=== PATIENT | female | born 1970 | race Caucasian/White ===

== ENCOUNTER 2019-10-05 17:16 | Emergency (ER) | payer BC, SELFPAY ==
[2019-10-05 17:16] VITALS: BP 179/95; PULSE 94; RESP 18; TEMP 36.8; O2SAT 98; BMI 54.6
--- NOTE | 2019-10-05 17:30 | CT_ITS ---
STUDY: CT ABDOMEN AND PELVIS WITHOUT CONTRAST REASON FOR EXAM: Female, 49 years old. RIGHT FLANK PAIN RADIATING INTO RIGHT GROIN, NAUSEA, FREQUENT URINATION -- HX:HYSTERECTOMY RADIATION DOSAGE (If Supplied By Facility): CTDIvol = ( 24.17 ) mGy, DLP = ( 1268.10 ) mGycm TECHNIQUE: Transaxial images were obtained from the dome of the diaphragm to the symphysis pubis without oral contrast, and without intravenous contrast. Sagittal and coronal images were reconstructed. Individualized dose optimization techniques were used for this CT. COMPARISON: None. FINDINGS: The visualized lung bases are unremarkable. Normal liver. No intrahepatic biliary duct dilatation or liver mass. Normal gallbladder and extrahepatic biliary system. Normal spleen. Normal pancreas. There is a small 2.93 cm, circumscribed, smooth, low attenuation right adrenal mass, consistent with an adrenal adenoma. Normal left adrenal gland. Normal right kidney. Normal left kidney. No hydronephrosis or renal masses. No large stones. Normal visualized stomach. Normal small intestine. Normal colon. No bowel dilatation or obstruction. No free air or free fluid. The appendix is visualized and appears normal. Normal abdominal aorta. Normal inferior vena cava. Normal retroperitoneum. Normal urinary bladder. There is absence of the uterus consistent with a prior hysterectomy. A small left ovarian cyst is present. Normal abdominal wall. Normal osseous structures. CT/Abdomen/Pelvis without Cont IMPRESSION: No hydronephrosis or renal masses. No large stones. Electronically Signed: Topher Bellamy MD at 18:50 EDT , Service support ,
--- NOTE | 2019-10-05 17:32 | ED.DCSUM_ITS ---
- ER Visit Summary Date of Service: 10/05/19 Chief Complaint: Right flank pain History of Present Illness: The patient is a 49 F past medical history of a hysterectomy. Patient states yesterday she had sudden onset of right flank pain radiating to her right groin region. Denies any fall injury or trauma. Mild nausea. No vomiting or diarrhea. No dysuria. No fever or chills. No hematuria. She is never had a kidney stone. She denies any injury to her back. Physical Examination: Middle-aged female vital signs are stable afebrile. Pacing. H EENT exam unremarkable. Neck nontender to. Lungs clear to auscultation bilaterally. Heart regular rhythm no murmur. Abdomen soft nontender normal bowel sounds no peritoneal signs. Both the right upper and lower quadrants are unremarkable nontender. Patient moving all 4 extremities. Neurovascular intact. Back spine and no CVA tenderness. No right SI tenderness. Neurologically she is awake alert with no focal motor deficits. Test Results: CBC white count 11.9. Hemoglobin 10.6 which is her baseline anemia. No bands. Chemistries unremarkable. Normal creatinine and gap. UA normal. No blood. No signs of infection. CT abdomen pelvis without contrast shows no acute abnormality. Read by the radiologist reviewed by me. There is no kidney stones or ureteral stones. There is no other acute abnormality to account for her discomfort. Emergency Department Course and Treatment: Patient with right flank pain differential would include kidney stone versus musculoskeletal etiology. She was offered pain meds deferred at this time. She is driving. She did take ibuprofen prior to arrival. Repeat exam at 1900 patient is doing well. This may be secondary to musculoskeletal hip or back pain. She has discomfort with range of motion to her right hip. There is no swelling or redness. No signs of a septic joint. She has had no trauma and no reason to have a fracture. Looking at the CAT scan there is no obvious abnormality to her right hip. Treatment Plan: Tylenol and Motrin for pain. Ice to her hip. Follow-up with her primary care physician if not improving. Disposition: Discharge Impression: Acute right flank pain of uncertain etiology Musculoskeletal pain This note was generated with [employer] dictation software. It may contain incorrect words, spelling, and punctuation that were not noted in review of the chart prior to signing ED Disposition - Plan for ED Patient: Referrals: Amada Mata [Primary Care Provider] -
[2019-10-05 18:19] LABS: Bacteria 0 SEEN /hpf (None Seen); Mucous, Urine 0 SEEN /hpf (<or=2+); Red Blood Cells-Urine 0 SEEN /hpf (0-5); White Blood Cells 0 SEEN /hpf (0-5)
[2019-10-05 18:21] LABS: Absolute Lymphocyte Count 2.55 X10^3/uL (0.83-4.51); Absolute Neutrophil Count 8.1 X10^3/uL (2.0-7.7); Basophil# 0.03 X10^3/uL; Basophil% 0.3 % (0-1); Eosinophil# 0.08 X10^3/uL; Eosinophils% 0.7 % (0-5); Hematocrit 35.3 % (37-47); Hemoglobin 10.6 g/dL (12.0-15.0); Lymphocyte # 2.55 X10^3/ul (4.0); Lymphocyte % 21.4 % (19-41); Mean Corpuscular Hgb 22.6 pg (27.0-32.0); Mean Corpuscular Volume 75.4 fL (81-99); Mean Platelet Vol. 9.6 fl (6.2-12.0); Monocyte# 1.12 X10^3/uL; Monocyte% 9.4 % (0-10); NRBC Flagged by Analyzer 0 % (0-5); Neutrophil # 8.08 X10^3/uL (2.7-7.7); Neutrophil % 67.9 % (47-70); Platelet Count 350 K/mm3 (150-450); RBC Distribution Width CV 17.6 % (11.6-14.6); RBC Distribution Width SD 47.4 fl (35.1-43.9); Red Blood Count 4.68 M/mm3 (4.2-5.4); White Blood Count 11.9 K/mm3 (4.4-11.0)
[2019-10-05 18:23] LABS: Color, Urine Yellow (Yellow); Glucose, Dipstick Normal (Normal); Ketone-Dipstick Negative (Negative); Leukocyte Esterase-Dipstick Negative /ul (Negative); Nitrite-Dipstick Negative (Negative); Occult Blood-Urine Negative /ul (Negative); Protein-Dipstick Negative (Negative); Specific Gravity, Urine 1.005 (1.002-1.030); Urine Bilirubin Dipstick Negative (Negative); Urine Clarity Sl. Cloudy (Clear); Urine Urobilinogen Normal (Normal)
[2019-10-05 18:34] LABS: Anion Gap 5 (5-15); BUN 12 mg/dL (7-18); BUN/Creat Ratio 15.9 RATIO (10-20); Calcium,Total 9.1 mg/dL (8.5-10.1); Chloride 105 mmol/L (98-107); Creatinine, Serum 0.76 mg/dL (0.55-1.02); EST Glomerular Filtration Rate 86 mL/min (>60); Est Glom Filt Rate - Afr Amer 104 mL/min (>60); Estimated Creatinine Clearance 75.62 ml/min; Glucose 97 mg/dL (74-106); Potassium 3.7 mmol/L (3.5-5.1); Sodium Level 136 mmol/L (136-145)
[2019-10-05 18:41] LABS: Squamous Epithelial Cells - UA 0-5 SEEN /hpf (5-10)
--- NOTE | 2019-10-05 19:14 | ED.DEP ---
ED Disposition - Plan for ED Patient: Disposition: Home or Assisted Living Instructions: ED Flank Pain Uncertain Cause Referrals: Amada Mata [Primary Care Provider] - 3-5 Days if not improving Additional Instructions: And/or Motrin for pain. Your CAT scan and labs were normal. There is no signs of kidney stone or urinary tract infection. This appears to be musculoskeletal back and hip pain. Tylenol and Motrin for pain. Follow-up with your doctor if not improving.
[2019-10-05 19:31] VITALS: BP 167/102; PULSE 84; RESP 16; O2SAT 98
== END 2019-10-05 19:32 | disposition home or self-care (01) ==
PROVIDERS: Emergency Provider Emergency Medicine; PCP Family Medicine
DX: M54.9 Dorsalgia, unspecified (principal); R10.31 Right lower quadrant pain; R11.0 Nausea; D64.9 Anemia, unspecified
CPT/HCPCS: 74176; 80048; 81001; 85025; 99283; A4216

== ENCOUNTER 2022-12-06 13:43 | Emergency (ER) | payer BC, SELFPAY ==
[2022-12-06 13:44] VITALS: BP 145/76; PULSE 79; RESP 16; TEMP 36.3; O2SAT 98
--- NOTE | 2022-12-06 13:56 | RAD_ITS ---
INDICATION: injury EXAMINATION/TECHNIQUE: X-RAY - LEFT XR Knee Complete 4 Views or More 4 VIEWS COMPARISON: FINDINGS: SOFT TISSUES: No soft tissue swelling or gas. No radiopaque foreign body. BONES/JOINTS: No acute fracture or subluxation.. Normal alignment. Preservation of the joint space.. No sclerotic or destructive changes observed. RAD/Knee 4 or More Views IMPRESSION: Negative. Electronically Signed: Frantz Taylor MD at 15:17 EDT ,
--- NOTE | 2022-12-06 13:56 | RAD_ITS ---
INDICATION: injury EXAMINATION/TECHNIQUE: X-RAY - LEFT XR Femur Min 2 Views 4 VIEWS COMPARISON: FINDINGS: SOFT TISSUES: No soft tissue swelling or gas. No radiopaque foreign body. BONES/JOINTS: No acute fracture or subluxation.. Normal alignment. 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 No sclerotic or destructive changes observed. RAD/Femur Min 2 Views IMPRESSION: No evidence of fracture. Electronically Signed: Frantz Taylor MD at 15:22 EDT ,
[2022-12-06] MEDS: traMADol 50 MG Tablet PO (14:07)
[2022-12-06] MEDS: Naproxen 250 MG Tablet 500 MG PO (14:07)
--- NOTE | 2022-12-06 14:16 | ED.VIS.LOWEX ---
HPI History of Present Illness Chief Complaint: Lower Extremity Injury Informant: patient Narrative Narrative: Just prior to arrival, patient was coming down some bleachers and jumped off of them onto the ground landing on her feet with sudden onset of pain in her left knee, radiates up her thigh to the hip/groin, and trouble bearing weight/walking on it. No other injuries. Did not fall. PFSH PFSH Medical History no medical history no medical history Home Medications tramadol 50 mg tablet 50 mg PO Q6H PRN pain 3 days #12 tabs 12/06/22 [Rx Last Taken Unknown] Allergy/AdvReac Type Severity Reaction Status Date / Time Penicillins Allergy Hives Verified 12/06/22 13:45 Social History Smoking Status: Never smoker ROS ROS ED Constitutional Constitutional ED: Denies chills or fever(s) Musculoskeletal Musculoskeletal: Reports extremity pain; Denies neck pain Integumentary Denies Abrasions, rash or wounds Neurologic Neurologic: Denies paresthesias or weakness EXAM Physical Exam Const Vital Signs: 12/06/22 13:44 Temperature 97.4 F L Temperature Source Temporal Pulse Rate 79 Respiratory Rate 16 Blood Pressure 145/76 H Blood Pressure Mean 99 Pulse Ox 98 Oxygen Delivery Method Room Air Positive well nourished and well developed General Appearance ED: well developed and NAD Neck full ROM and supple Back/Spine normal ROM and normal to inspection Extremity Extremity Narrative: Limited range of motion of the left knee, extensor mechanism is intact but cannot straighten all the way, just short. Can flex to around 65 or so degrees. All ligaments seem to be intact with short endpoints including negative Alicia and negative posterior drawer. There is small effusion, there is some anterior tenderness near the inferior pole of the patella, but the tibial tuberosity and the lateral medial joint line are nontender. No deformities. Pain in the medial thigh up to the groin with logroll, but no tenderness of the greater trochanter, no tenderness on pelvic bones, ankle nontender otherwise exam benign Neuro oriented x3, no focal motor deficits and no sensory deficits noted Sensorium / Orientation: alert Psych mental status grossly normal and thought process normal Skin no wounds Rashes: no rashes MDM MDM MDM Narrative Medical decision making narrative: 4 view x-ray series of the left knee were obtained in addition to a 4 view x-ray series of the left femur. Both negative for any fracture or dislocation on my interpretation. May be small effusion in the knee. Her knee is stable, so she is placed in an Jonathan wrap, given crutches, anti-inflammatories and tramadol and advised to follow-up with orthopedics, as I discussed with her this could be a minor sprain and/or a meniscus injury, I do not think she has an occult hip fracture here all of her symptoms really were in the knee and radiating elsewhere. She is comfortable with that plan. Discharge Plan Triage Chief Complaint: Lower Extremity Injury ED Provider: Roney Manning Dx/Rx/DC Orders Clinical Impression: Left knee injury Instructions: Reducing Knee Pain and Swelling, ED Bandage Elastic Wrap Prescriptions: New tramadol 50 mg tablet 50 mg PO Q6H PRN (Reason: pain) 3 Days Qty: 12 0RF Primary Care Provider: MAYITO WETZEL Referrals: MAYITO WETZEL DO [Primary Care Provider] - Denny Sibley DO [Med Staff - Active Staff] - 5-7 Days (call for appt) Disposition Disposition: Home, Self Care
== END 2022-12-06 15:01 | disposition home or self-care (01) ==
PROVIDERS: Emergency Provider Emergency Medicine; PCP Family Medicine; Visit Provider Emergency Medicine
DX: S80.912A Unspecified superficial injury of left knee, initial encounter (principal); W17.89XA Other fall from one level to another, initial encounter
CPT/HCPCS: 73552; 73564; 99284